=== PATIENT | male | born 1955 | race Caucasian/White ===

== ENCOUNTER 2018-07-12 20:55 | Observation (INO) | payer BC ==
[2018-07-12] MEDS ORDERED: MAGNE/ALUM HYDROXD 30 ML UCUP ONE (21:49)
[2018-07-12] MEDS ORDERED: LIDOCAINE VISCOUS 2% SOLN 15 ML UDC ONE (21:49)
[2018-07-12 21:56] LABS: Absolute Lymphocytes (CBC) 3.6 K/uL (0.7-4.9); Absolute Monocytes 0.5 K/uL (0.1-1.3); Absolute Neutrophil 3.5 K/uL (1.8-8.0); Eosinophils % 3.7 % (0-4.4); Hematocrit 45.1 % (39.6-49.0); MPV 8.7 fL (7.6-11.3); Monocytes % 6.3 % (3.3-12.3); RBC Red Blood Cell Count 5.12 M/uL (4.33-5.43)
[2018-07-12 21:57] LABS: Protime INR 1.01
[2018-07-12 22:16] LABS: ALT/SGPT 34 U/L (12-78); AST/SGOT 21 U/L (15-37); Albumin 3.8 g/dL (3.4-5.0); Alkaline Phosphatase 69 U/L (45-117); BUN Blood Urea Nitrogen 10 mg/dL (7-18); Bicarbonate 30 mmol/L (21-32); Bilirubin Direct < 0.1 mg/dL (0-0.2); Bilirubin Total 0.3 mg/dL (0.2-1.0); Glucose Level 180 mg/dL (74-106); Magnesium 1.9 mg/dL (1.8-2.4); NT PRO-BNP 16 pg/mL (<125); Potassium 3.8 mmol/L (3.5-5.1); Protein, Total 7.2 g/dL (6.4-8.2); Sodium Level 139 mmol/L (136-145); Troponin (Emerg Dept Use Only) < 0.02 ng/mL (0.0-0.045)
--- NOTE | 2018-07-13 01:10 | EDPHYS ---
Physician Documentation [facility] Name: Melvin Zabala Age: 63 yrs Sex: Male : 1955 Arrival Date: 07/12/2018 Time: 20:57 Bed 8 Private MD: Bob Deng H ED Physician Ceferino Jacob HPI: 07/13 01:25 This 63 yrs old Male presents to ER via Ambulatory with complaints of Chest tw4 Tightness, High Blood Pressure. 01:25 The patient or guardian reports chest pain that is located primarily in the anterior tw4 chest wall. Onset: today. The pain does not radiate. Associated signs and symptoms: The patient has no apparent associated signs or symptoms. The chest pain is described as aching. Duration: The patient or guardian reports a single episode. Modifying factors: The symptoms are alleviated by nothing. the symptoms are aggravated by nothing. Severity of pain: At its worst the pain was moderate in the emergency department the pain is unchanged. The patient has not experienced similar symptoms in the past. Historical: - Allergies: 07/12 21:16 No Known Allergies; aa1 - Home Meds: 21:16 None [Active]; aa1 - PMHx: 21:16 Back pain; aa1 - PSHx: 21:16 Carpal Tunnel Repair; ACL repair; foot sx; aa1 - Immunization history:: Flu vaccine is up to date. - Social history:: Smoking status: Patient/guardian denies using tobacco. - Ebola Screening: : No symptoms or risks identified at this time. ROS: 07/13 01:25 Constitutional: Negative for fever, chills, and weight loss, Eyes: Negative for injury, tw4 pain, redness, and discharge, Respiratory: Negative for shortness of breath, cough, wheezing, and pleuritic chest pain, Abdomen/GI: Negative for abdominal pain, nausea, vomiting, diarrhea, and constipation, Back: Negative for injury and pain. MS/Extremity: Negative for injury and deformity, Skin: Negative for injury, rash, and discoloration, Neuro: Negative for headache, weakness, numbness, tingling, and seizure. Cardiovascular: Positive for chest pain, Negative for edema, orthopnea, palpitations, paroxysmal nocturnal dyspnea. Exam: 01:25 Constitutional: This is a well developed, well nourished patient who is awake, alert, tw4 and in no acute distress. Head/Face: Normocephalic, atraumatic. Eyes: Pupils equal round and reactive to light, extra-ocular motions intact. Lids and lashes normal. Conjunctiva and sclera are non-icteric and not injected. Cornea within normal limits. Periorbital areas with no swelling, redness, or edema. Chest/axilla: Normal chest wall appearance and motion. Nontender with no deformity. No lesions are appreciated. Cardiovascular: Regular rate and rhythm with a normal S1 and S2. No gallops, murmurs, or rubs. Normal PMI, no JVD. No pulse deficits. Respiratory: Lungs have equal breath sounds bilaterally, clear to auscultation and percussion. No rales, rhonchi or wheezes noted. No increased work of breathing, no retractions or nasal flaring. Abdomen/GI: Soft, non-tender, with normal bowel sounds. No distension or tympany. No guarding or rebound. No evidence of tenderness throughout. Back: No spinal tenderness. No costovertebral tenderness. Full range of motion. MS/ Extremity: Pulses equal, no cyanosis. Neurovascular intact. Full, normal range of motion. Neuro: Awake and alert, GCS 15, oriented to person, place, time, and situation. Cranial nerves II-XII grossly intact. Motor strength 5/5 in all extremities. Sensory grossly intact. Cerebellar exam normal. Normal gait. Vital Signs: 07/12 21:16 BP 151 / 89; Pulse 56; Resp 18; Temp 98.1; Pulse Ox 100% on R/A; Weight 93.44 kg; aa1 Height 6 ft. 1 in. (185.42 cm); Pain 4/10; 22:21 BP 155 / 83; Pulse 55; Resp 16; Pulse Ox 98% on R/A; aa1 23:39 BP 139 / 90; Pulse 52; Resp 16; Pulse Ox 97% on R/A; aa1 07/13 00:30 BP 114 / 60; Pulse 47; Resp 16; Pulse Ox 100% on R/A; Pain 3/10; aa1 01:30 BP 144 / 85; Pulse 50; Resp 16; Pulse Ox 97% on R/A; Pain 10; aa1 02:46 BP 135 / 86; Pulse 49; Resp 14; Pulse Ox 97% on R/A; Pain 3/10; aa1 03:06 BP 128 / 65; Pulse 43; Resp 14 S; Pulse Ox 97% on R/A; jd3 07/12 21:16 Body Mass Index 27.18 (93.44 kg, 185.42 cm) aa1 MDM: 07/12 21:08 Patient medically screened. [facility] 07/13 01:28 Differential diagnosis: abnormal EKG, acute myocardial infarction, gastroesophageal tw4 reflux disease (GERD), herpes zoster, pulmonary embolus, stable angina. The patient was given aspirin in the Emergency Department. Data reviewed: vital signs, nurses notes. Data interpreted: Pulse oximetry: Interpretation: normal. Physician consultation: Dillan Gunter MD. 07/12 21:29 Order name: Basic Metabolic Panel; Complete Time: 22:41 [facility] 07/12 22:41 Interpretation: Normal except: GLUC 180; GFR 86. [facility] 07/12 21:29 Order name: CBC with Diff; Complete Time: 22:41 [facility] 07/12 22:41 Interpretation: Normal except: LYM% 45.0. [facility] 07/12 21:29 Order name: LFT's; Complete Time: 22:41 [facility] 07/12 22:42 Interpretation: Within normal limits. [facility] 07/12 21:29 Order name: Magnesium; Complete Time: 22:42 [facility] 07/12 22:42 Interpretation: Within normal limits: MG 1.9. [facility] 07/12 21:29 Order name: NT PRO-BNP [facility] 07/12 21:29 Order name: PT-INR [facility] 07/12 21:29 Order name: Troponin (emerg Dept Use Only) [facility] 07/13 00:25 Order name: Troponin (emerg Dept Use Only) [facility] 07/13 02:09 Order name: Basic Metabolic Panel [facility] 07/13 02:09 Order name: Basic Metabolic Panel [facility] 07/13 02:09 Order name: CBC with Automated Diff [facility] 07/13 02:09 Order name: CBC with Automated Diff [facility] 07/13 02:09 Order name: Lipid Profile [facility] 07/13 02:09 Order name: Lipid Profile [facility] 07/12 21:29 Order name: XRAY Chest (1 view) [facility] 07/12 21:29 Order name: EKG; Complete Time: 21:29 tw4 07/12 21:29 Order name: Cardiac monitoring; Complete Time: 21:35 tw4 07/12 21:29 Order name: EKG - Nurse/Tech; Complete Time: 21:35 tw4 07/12 21:29 Order name: IV Saline Lock; Complete Time: 21:47 tw4 07/12 21:29 Order name: Labs collected and sent; Complete Time: 21:47 tw4 07/12 21:29 Order name: O2 Per Protocol; Complete Time: 21:35 tw4 07/12 21:29 Order name: O2 Sat Monitoring; Complete Time: 21:35 tw4 07/13 02:09 Order name: CONS Physician Consult [facility] 07/13 02:09 Order name: Heart Healthy [facility] 07/13 02:09 Order name: Troponin I [facility] 07/13 02:09 Order name: Troponin I [facility] 07/13 02:09 Order name: Troponin I [facility] EC:25 Rate is 53 beats/min. Rhythm is regular, Sinus bradycardia. QRS [place] is Normal. [place] tw4 interval is normal. QRS interval is normal. QT interval is normal. No Q waves. T waves are Normal. No ST changes noted. Clinical impression: NSR w/ Non-specific ST/T Changes. Interpreted by me. Reviewed by me. Administered Medications: 07/12 21:47 Drug: GI Cocktail without - (Maalox Suspension 30 ml, Lidocaine Liquid 2 % 15 jd3 ml) Route: PO; 22:45 Follow up: Response: No adverse reaction [facility] 07/13 01:29 Not Given (Physician Discretion): Nitro-Bid Ointment 2 % 0.5 inches Transdermal once aa1 Disposition: 07/13/18 01:09 Hospitalization ordered by Dillan Gunter for Observation. Preliminary diagnosis are Chest pain, unspecified, Angina pectoris, unspecified. - Bed requested for Telemetry/MedSurg (observation). - Status is Observation. jd3 - Condition is Stable. - Problem is new. - Symptoms have improved. UTI on Admission? No Signatures: Dispatcher [employer] [facility] Raeann Wang RN RN Savana Sheppard RN RN aa1 Ronaldo Long RN RN jd3 Ceferino Jacob MD MD tw4 Corrections: (The following items were deleted from the chart) 01:34 01:09 Hospitalization Ordered by Dillan Gunter MD for Observation. Preliminary mw diagnosis is Chest pain, unspecified; Angina pectoris, unspecified. Bed requested for Telemetry/MedSurg (observation). Status is Observation. Condition is Stable. Problem is new. Symptoms have improved. UTI on Admission? No. tw4 03:18 01:34 07/13/2018 01:09 Hospitalization Ordered by Dillan Gunter MD for Observation. jd3 Preliminary diagnosis is Chest pain, unspecified; Angina pectoris, unspecified. Bed requested for Telemetry/MedSurg (observation). Status is Observation. Condition is Stable. Problem is new. Symptoms have improved. UTI on Admission? No. mw
--- NOTE | 2018-07-13 01:10 | ER ---
Nurse's Notes [facility] Name: Melvin Zabala Age: 63 yrs Sex: Male : 1955 Arrival Date: 07/12/2018 Time: 20:57 Bed 8 Private MD: Bob Deng H Diagnosis: Chest pain, unspecified;Angina pectoris, unspecified Presentation: 07/12 21:11 Presenting complaint: Patient states: he woke up this morning about 0730 with pain in aa1 his upper back and chest. Reports the pain was worse when he swallowed and felt as if he had something stuck in his esophagus. Denies N/V, SOB, or diaphoresis. Reports mild dizziness. States pain is mild. Transition of care: patient was not received from another setting of care. Onset of symptoms was July 12, 2018 at 07:30. Risk Assessment: Do you want to hurt yourself or someone else? Patient reports no desire to harm self or others. Initial Sepsis Screen: Does the patient meet any 2 criteria? No. Patient's initial sepsis screen is negative. Does the patient have a suspected source of infection? No. Patient's initial sepsis screen is negative. Care prior to arrival: None. 21:11 Method Of Arrival: Ambulatory aa1 21:11 Acuity: RUSTY 2 aa1 Historical: - Allergies: 21:16 No Known Allergies; aa1 - Home Meds: 21:16 None [Active]; aa1 - PMHx: 21:16 Back pain; aa1 - PSHx: 21:16 Carpal Tunnel Repair; ACL repair; foot sx; aa1 - Immunization history:: Flu vaccine is up to date. - Social history:: Smoking status: Patient/guardian denies using tobacco. - Ebola Screening: : No symptoms or risks identified at this time. Screenin:21 Abuse screen: Denies threats or abuse. Denies injuries from another. Nutritional aa1 screening: No deficits noted. Tuberculosis screening: No symptoms or risk factors identified. Fall Risk None identified. Assessment: 21:21 General: Appears in no apparent distress. comfortable, Behavior is calm, cooperative, aa1 appropriate for age. Pain: Complains of pain in thoracic area and mid-sternal area Pain does not radiate. Pain currently is 4 out of 10 on a pain scale. Quality of pain is described as dull, Pain began this morning upon waking Is continuous. Neuro: Level of Consciousness is awake, alert, obeys commands, Oriented to person, place, time, situation, Appropriate for age Moves all extremities. Full function Gait is steady, Speech is normal, Reports dizziness. Cardiovascular: Heart tones S1 S2 present Rhythm is regular. Respiratory: Airway is patent Respiratory effort is even, unlabored, Respiratory pattern is regular, symmetrical. GI: No signs and/or symptoms were reported involving the gastrointestinal system. : No signs and/or symptoms were reported regarding the genitourinary system. EENT: No signs and/or symptoms were reported regarding the EENT system. Derm: Skin is intact, is healthy with good turgor, Skin is pink, warm \T\ dry. Musculoskeletal: Circulation, motion, and sensation intact. Capillary refill < 3 seconds. 22:21 Reassessment: Patient appears in no apparent distress at this time. Patient and/or aa1 family updated on plan of care and expected duration. Pain level reassessed. Patient is alert, oriented x 3, equal unlabored respirations, skin warm/dry/pink. Awaiting provider reassessment. 23:35 Reassessment: Patient appears in no apparent distress at this time. Patient and/or aa1 family updated on plan of care and expected duration. Pain level reassessed. Patient is alert, oriented x 3, equal unlabored respirations, skin warm/dry/pink. Awaiting repeat cardiac enzymes to be drawn at 0045. 07/13 00:30 Reassessment: Patient appears in no apparent distress at this time. Patient and/or aa1 family updated on plan of care and expected duration. Pain level reassessed. Patient is alert, oriented x 3, equal unlabored respirations, skin warm/dry/pink. Pt to be admitted; awaiting bed assignment. 01:35 Reassessment: Patient appears in no apparent distress at this time. Patient and/or aa1 family updated on plan of care and expected duration. Pain level reassessed. Patient is alert, oriented x 3, equal unlabored respirations, skin warm/dry/pink. Pt to be admitted to room 229; awaiting admission orders from Dr. garcia. 02:46 Reassessment: Patient appears in no apparent distress at this time. Patient is alert, aa1 oriented x 3, equal unlabored respirations, skin warm/dry/pink. Attempted to call report, was told nurse will call back shortly. 03:05 Reassessment: Patient appears in no apparent distress at this time. Patient and/or jd3 family updated on plan of care and expected duration. Pain level reassessed. Patient is alert, oriented x 3, equal unlabored respirations, skin warm/dry/pink. report given to nurse Gagan for room 229. Vital Signs: 07/12 21:16 BP 151 / 89; Pulse 56; Resp 18; Temp 98.1; Pulse Ox 100% on R/A; Weight 93.44 kg; aa1 Height 6 ft. 1 in. (185.42 cm); Pain 4/10; 22:21 BP 155 / 83; Pulse 55; Resp 16; Pulse Ox 98% on R/A; aa1 23:39 BP 139 / 90; Pulse 52; Resp 16; Pulse Ox 97% on R/A; aa1 07/13 00:30 BP 114 / 60; Pulse 47; Resp 16; Pulse Ox 100% on R/A; Pain 3/10; aa1 01:30 BP 144 / 85; Pulse 50; Resp 16; Pulse Ox 97% on R/A; Pain 3/10; aa1 02:46 BP 135 / 86; Pulse 49; Resp 14; Pulse Ox 97% on R/A; Pain 3/10; aa1 03:06 BP 128 / 65; Pulse 43; Resp 14 S; Pulse Ox 97% on R/A; jd3 07/12 21:16 Body Mass Index 27.18 (93.44 kg, 185.42 cm) aa1 ED Course: 07/12 20:57 Patient arrived in ED. do 20:57 Bob Deng DO is Private Physician. do 21:08 Ceferino Jacob MD is Attending Physician. tw4 21:11 Savana Sheppard RN is Primary Nurse. aa1 21:13 Triage completed. aa1 21:16 Arm band placed on right wrist. aa1 21:21 Patient has correct armband on for positive identification. Placed in gown. Bed in low aa1 position. Call light in reach. surveillance system monitor on. Pulse ox on. NIBP on. 21:21 Patient maintains SpO2 saturation greater than 95% on room air. aa1 21:48 No provider procedures requiring assistance completed. Inserted saline lock: 20 gauge jd3 in right forearm, using aseptic technique. Blood collected. 21:59 XRAY Chest (1 view) In Process Unspecified. EDRI 07/13 01:09 Dillan Garcia MD is Hospitalizing Provider. tw4 02:53 Patient admitted, IV remains in place. aa1 Administered Medications: 07/12 21:47 Drug: GI Cocktail without - (Maalox Suspension 30 ml, Lidocaine Liquid 2 % 15 jd3 ml) Route: PO; 22:45 Follow up: Response: No adverse reaction jd3 07/13 01:29 Not Given (Physician Discretion): Nitro-Bid Ointment 2 % 0.5 inches Transdermal once aa1 Outcome: 01:09 Decision to Hospitalize by Provider. tw4 03:04 Admitted to Tele accompanied by tech, via wheelchair, room 229, with chart, Report jd3 called to Gagan FLORES 03:04 Condition: stable 03:04 Instructed on the need for admit, Demonstrated understanding of instructions. 03:18 Patient left the ED. jd3 Signatures: Dispatcher [employer] [facility]RI Savana Sheppard, RN RN aa1 Carine Hatfield Jonathon, RN RN jd3 Ceferino Jacob MD MD tw4
[2018-07-13] MEDS ORDERED: MORPHINE 4 MG/ML SYR IV PRN (02:06)
[2018-07-13] MEDS ORDERED: ACETAMINOPHEN 500 MG TAB PO PRN (02:06)
[2018-07-13] MEDS ORDERED: ALPRAZOLAM 0.25 MG TABLET PO PRN (02:06)
--- NOTE | 2018-07-13 04:22 | P.HP ---
Certification for Inpatient Patient admitted to: Observation With expected LOS: <2 Midnights Patient will require the following post-hospital care: None Practitioner: I am a practitioner with admitting privileges, knowledge of patient current condition, hospital course, and medical plan of care. Services: Services provided to patient in accordance with Admission requirements found in Title 42 Section 412.3 of the Code of Federal Regulations Patient History Date of Service: 07/13/18 Reason for admission: CP r/o ACS History of Present Illness: Patient is a 63-year-old gentleman who came to the hospital with chest pain. Pain was mainly in the sternal region. It started after he had something to eat yesterday. In the morning when he went to drink some water he has some discomfort. He said it was mainly related to swallowing liquids. The pain radiated to his back. The pain continued throughout the day and then he noted that his blood pressure was elevated. He went and bought a blood pressure cuff from his pharmacy. His blood pressure remained elevated any was having the chest discomfort so he came into the emergency room. In the ER, he was given a GI cocktail and Protonix with no relief of his abdominal pain. He will be admitted to the hospital for further evaluation. There is indication from the medical records that he was scheduled to get a treadmill stress test in May. Will see if there is any records. Allergies No Known Allergies Allergy (Verified 07/13/18 02:09) Home Medications: NK [No Home Meds] 07/13/18 - Past Medical/Surgical History Has patient received pneumonia vaccine in the past: No Diabetic: No -: accelerated heart rate -: Chronic Back Pain -: Carpal tunnel repair -: ACL repair left knee -: foot surgery both - Family History Father Medical History: Other (see notes) Notes: hardened arteries; heart dse Mother Medical History: Diabetes - Social History Smoking Status: Never smoker Alcohol use: Yes CD- Drugs: No Caffeine use: Yes Place of Residence: Home Review of Systems 10-point ROS is otherwise unremarkable Physical Examination - Vital Signs Temperature: 98.1 F Blood Pressure: 151/89 Pulse: 56 Respirations: 18 Pulse Ox (%): 98 - Physical Exam General: Alert, In no apparent distress, Oriented x3 HEENT: Atraumatic, PERRLA, Mucous membr. moist/pink, EOMI, Sclerae nonicteric Neck: Supple, 2+ carotid pulse no bruit, No LAD, Without JVD or thyroid abnormality Respiratory: Clear to auscultation bilaterally, Normal air movement Cardiovascular: Regular rate/rhythm, Normal S1 S2, No murmurs Gastrointestinal: Normal bowel sounds, Soft and benign, Non-distended, No tenderness Musculoskeletal: No clubbing, No swelling, No tenderness Integumentary: No rashes Neurological: Normal gait, Normal speech, Normal strength at 5/5 x4 extr, Normal tone, Sensation intact, Cranial nerves 3-12 intact, Normal affect Lymphatics: No axilla or inguinal lymphadenopathy - Studies Laboratory Data (last 24 hrs) 07/12/18 21:45: PT 11.9, INR 1.01 07/12/18 21:45: WBC 7.9, Hgb 15.8, Hct 45.1, Plt Count 176 07/12/18 21:45: Sodium 139, Potassium 3.8, BUN 10, Creatinine 0.89, Glucose 180 H, Magnesium 1.9, Total Bilirubin 0.3, AST 21, ALT 34, Alkaline Phosphatase 69 Assessment & Plan - Problems (Diagnosis) (1) Chest pain, rule out acute myocardial infarction Current Visit: Yes Status: Acute (2) HTN (hypertension) Current Visit: Yes Status: Acute Qualifiers: Hypertension type: essential hypertension Qualified Code(s): I10 - Essential (primary) hypertension (3) Dysphagia Current Visit: Yes Status: Acute - Plan 1. Serial troponins and EKG 2. Cardiology consultation 3. Echocardiogram and stress test if cardiology is agreeable 4. Anti-platelet therapy, anti coagulation, beta-john, statin, and O2 as needed 5. IV morphine for pain 6. Nitro p.r.n. 7. GI/DVT prophylaxis Discharge Plan: Home Plan to discharge in: 48 Hours - Advance Directives Does patient have a Living Will: Yes Does patient have a Durable POA for Healthcare: Yes - Code Status/Comfort Care Code Status Assessed: Yes Code Status: Full Code Critical Care: No Time Spent Managing PTS Care (In Minutes): 45
[2018-07-13 04:26] VITALS: O2SAT 97
[2018-07-13 04:42] VITALS: BMI 27.1
[2018-07-13] MEDS ORDERED: PANTOPRAZOLE 40MG TABLET PO SCH (06:30)
[2018-07-13 06:32] LABS: HDL Cholesterol 35 mg/dL (40-60); LDL Cholesterol, Calculated 107 (<130); Lipase 90 U/L (73-393); Troponin I < 0.02 ng/mL (0.0-0.045)
--- NOTE | 2018-07-13 07:36 | RAD REPORT ---
EXAM DESCRIPTION: Talia Single View07/12/2018 9:59 pm CLINICAL HISTORY: Chest pain COMPARISON: 2013 FINDINGS: The lungs appear clear of acute infiltrate. The heart is normal size IMPRESSION: No acute abnormalities displayed
[2018-07-13] MEDS ORDERED: METOPROLOL TAR 50 MG TAB PO SCH (09:00)
[2018-07-13] MEDS ORDERED: ASPIRIN 325 MG TAB PO SCH (09:00)
[2018-07-13] MEDS ORDERED: LOSARTAN POTASSIUM 50 MG TABLET PO SCH (09:00)
[2018-07-13] MEDS ORDERED: ENOXAPARIN 40 MG/0.4 ML SQ SCH (09:00)
--- NOTE | 2018-07-13 09:19 | EKG ---
Test Date: 2018-07-12 Test Time: 21:15:24 Fundraising Officer: [place]UMBA MEASUREMENT RESULTS: Intervals: Rate: 53 AR: 200 QRSD: 90 QT: 440 QTc: 412 [place]: P: 96 AR: 200 QRS: 123 T: 122 INTERPRETIVE STATEMENTS: Suspect arm lead reversal, interpretation assumes no reversal Sinus bradycardia Lateral infarct, age undetermined Abnormal ECG Compared to ECG 07/01/2010 06:33:23 Myocardial infarct finding now present finding is most likely due to arm lead reversal Electronically Signed On 07-13-18 09:18:26 CDT by Aaron Messer
[2018-07-13] MEDS ORDERED: REGADENOSON 0.4 MG/5 ML SYR IV ONE (09:37)
--- NOTE | 2018-07-13 12:26 | RAD REPORT ---
EXAM DESCRIPTION: NM - Rest Stress Cardiac Imaging - 07/13/2018 11:58 am CLINICAL HISTORY: Chest pain. COMPARISON: None. TECHNIQUE: The patient was administered approximately 10mCi of Tc 99m Sestamibi prior to resting SPE CT imaging of the heart. The patient was then administered approximately 30 mCi of Tc 99m Sestamibi f ollowing exercise or pharmacologic stress. Multiplanar SPECT images were reviewed. FINDINGS: Small area of diminished radiotracer uptake involves the inferior left ventricular myocard ium on rest and stress images. Otherwise there is uniformity of radiotracer uptake involving the enti re left ventricular myocardium The left ventricular ejection fraction equals 60% IMPRESSION: Small area of diminished radiotracer uptake involving the inferior left ventricular nolberto cardium probably secondary to attenuation from the diaphragm. An infarct is considered less likely No evidence of stress-induced ischemia
[2018-07-13 12:33] VITALS: BP 127/60; TEMP 98.3
--- NOTE | 2018-07-13 12:51 | CON ---
Chief Complaint: Chest pain between his shoulder blades associated with elevated blood pressure. History Of Present Illness: Mr. Garcia has no previous history of coronary heart disease. He has had normal stress test in the past. He was not having classical angina but pain between the shoulder blades. It made him think it could be his heart. It lasted some 8-10 hours before he actually came to the emergency room and now it has been another 24 since he has been in and all of his cardiac enz ymes look normal. The patient has never had myocardial infarction or stroke. He thinks he may have had atrial fib in the past, but we do not have any records of it here. He says all of his records we re here, but I think it must have been somewhere else. He does not take any medications. No anticoa gulants. No antiarrhythmics. No hypertension agents. He uses no tobacco. Physical Examination: General: 6 feet 1 inch, 206 pounds. HEENT: Normal. Lungs: Clear. Neck: Carotids, no bruit. Heart: Normal. Abdomen: Soft. Extremities: Normal. No cyanosis, clubbing, or edema. Distal pulses normal. EKG is not in the chart. All of his troponins are less than 0.02. I would recommend the patient hav e a stress test and echo and we will see if there is anything that needs to be worried about regardin g his atypical chest pain. He probably needs to be on antihypertensive medication. GENEVA/HILL Voice ID: [id number] Report ID: [id number]
--- NOTE | 2018-07-13 13:13 | P.DS ---
Admission Date: 07/13/18 Discharge Date: 07/13/18 Primary Care Provider: Dr. Deng Disposition: ROUTINE DISCHARGE Discharge Condition: GOOD Reason for Admission: CP r/o ACS Consultations: Cardiology-Dr. Messer Procedures: ECHO: Results pending at discharge. Cardiac stress test: COMPARISON: None. TECHNIQUE: The patient was administered approximately 10mCi of Tc 99m Sestamibi prior to resting SPECT imaging of the heart. The patient was then administered approximately 30 mCi of Tc 99m Sestamibi following exercise or pharmacologic stress. Multiplanar SPECT images were reviewed. FINDINGS: Small area of diminished radiotracer uptake involves the inferior left ventricular myocardium on rest and stress images. Otherwise there is uniformity of radiotracer uptake involving the entire left ventricular myocardium The left ventricular ejection fraction equals 60% IMPRESSION: Small area of diminished radiotracer uptake involving the inferior left ventricular myocardium probably secondary to attenuation from the diaphragm. An infarct is considered less likely No evidence of stress-induced ischemia Medical Problem List: Chest pain, likely noncardiac, with new diagnosis of hypertension Possible GERD Brief History of Present Illness: 63-year-old male presented to the emergency room with chest pain. Patient found to have elevated blood pressure. Patient was admitted for further evaluation and treatment. Hospital Course: Patient presented with chest pain. Patient was admitted for further evaluation. Cardiology was consulted. Cardiology recommended echocardiogram and cardiac stress test. Cardiac stress test no stress-induced ischemia. Results of echo pending at discharge. This can be followed up by his PCP. Cardiac enzymes unremarkable. No further intervention required. Chest pain likely noncardiac. Suspect underlying GERD. Recommend to continue with Pepcid 20 mg 1 pill twice daily. Patient may benefit with GI evaluation as an outpatient to further address. Patient may continue with aspirin 81 mg daily. Patient with noted elevated blood pressure. Patient not taking any medication at this time. Patient was started on medication during his hospital stay. Blood pressure improved with medication. At discharge he will continue with losartan 50 mg 1 pill daily. Recommend to maintain blood pressures less 150/ 80. Further adjustment can be done by his PCP. Vital Signs/Physical Exam: Temp Pulse Resp BP Pulse Ox 98.3 F 53 20 127/60 98 07/13/18 12:00 07/13/18 12:00 07/13/18 12:00 07/13/18 12:00 07/13/18 12:00 General: Alert, In no apparent distress, Oriented x3, Cooperative HEENT: Atraumatic Neck: Supple Respiratory: Clear to auscultation bilaterally, Normal air movement Cardiovascular: Normal pulses, Regular rate/rhythm Gastrointestinal: Normal bowel sounds, Soft and benign, Non-distended, No tenderness, No masses, No rebound, No guarding Musculoskeletal: No erythema, No tenderness, No warmth Integumentary: No tenderness/swelling, No erythema, No warmth, No cyanosis Neurological: Normal speech, Normal strength at 5/5 x4 extr, Normal tone, Normal affect Laboratory Data at Discharge: WBC 7.9 K/uL (4.3-10.9) 07/12/18 21:45 Hgb 15.8 g/dL (13.6-17.9) 07/12/18 21:45 Hct 45.1 % (39.6-49.0) 07/12/18 21:45 Plt Count 176 K/uL (152-406) 07/12/18 21:45 PT 11.9 SECONDS (9.5-12.5) 07/12/18 21:45 INR 1.01 07/12/18 21:45 Sodium 139 mmol/L (136-145) 07/12/18 21:45 Potassium 3.8 mmol/L (3.5-5.1) 07/12/18 21:45 BUN 10 mg/dL (7-18) 07/12/18 21:45 Creatinine 0.89 mg/dL (0.55-1.3) 07/12/18 21:45 Glucose 180 mg/dL (74-106) H 07/12/18 21:45 Magnesium 1.9 mg/dL (1.8-2.4) 07/12/18 21:45 Total Bilirubin 0.3 mg/dL (0.2-1.0) 07/12/18 21:45 AST 21 U/L (15-37) 07/12/18 21:45 ALT 34 U/L (12-78) 07/12/18 21:45 Alkaline Phosphatase 69 U/L (45-117) 07/12/18 21:45 Troponin I < 0.02 ng/mL (0.0-0.045) 07/13/18 06:00 Triglycerides 155 mg/dL (<150) H 07/13/18 06:00 Cholesterol 173 mg/dL (<200) 07/13/18 06:00 HDL Cholesterol 35 mg/dL (40-60) L 07/13/18 06:00 Cholesterol/HDL Ratio 4.94 07/13/18 06:00 Lipase 90 U/L (73-393) 07/13/18 06:00 Home Medications: Aspirin [Aspirin EC 81 MG] 81 mg PO DAILY #90 tablet. 07/13/18 Famotidine [Pepcid] 20 mg PO BID #60 tab 07/13/18 Losartan Potassium [Cozaar*] 50 mg PO DAILY #30 tablet 07/13/18 New Medications: Aspirin [Aspirin EC 81 MG] 81 mg PO DAILY #90 tablet. Famotidine [Pepcid] 20 mg PO BID #60 tab Losartan Potassium [Cozaar*] 50 mg PO DAILY #30 tablet Patient Discharge Instructions: 1. Recommend to follow up with his PCP in 1 week to follow up this hospitalization. 2. Patient presented with chest pain. Patient was admitted for further evaluation. Cardiology was consulted. Cardiology recommended echocardiogram and cardiac stress test. Cardiac stress test no stress-induced ischemia. Results of echo can be followed up by his PCP. Cardiac enzymes unremarkable. No further intervention required. Chest pain likely noncardiac. Suspect underlying GERD. Recommend to continue with Pepcid 20 mg 1 pill twice daily. Patient may benefit with GI evaluation as an outpatient to further address if this persists. Patient may continue with aspirin 81 mg daily. 3. Patient with noted elevated blood pressure. Patient not taking any medication at this time. Patient was started on medication. Blood pressure improved. At discharge he will continue with losartan 50 mg 1 pill daily. Recommend to maintain blood pressures less 150/80. Further adjustment can be done by his PCP. Diet: AHA Activity: Ad ellen Time spent managing pt's care (in minutes): 55
--- NOTE | 2018-07-13 13:45 | ECHO ---
HEIGHT: 6 ft 1 in WEIGHT: 206 lb 0 oz DATE OF STUDY: 07/13/[address]: Dillan Gunter MD 2-DIMENSIONAL: YES M.MODE: YES DOPPLER: YES COLOR FLOW: YES TDS: YES PORTABLE: NO DEFINITY: NO BUBBLE STUDY: NO DIAGNOSIS: CHEST PAIN/ RULE OUT ACUTE CORONARY SYNDROME CARDIAC HISTORY: CATHERIZATION: NO SURGERY: NO PROSTHETIC VALVE: NO PACEMAKER: NO MEASUREMENTS (cm) DIASTOLIC (NORMALS) SYSTOLIC (NORMALS) IVSd 0.9 (0.6-1.2) LA Diam 3.5 (1.9-4.0) LVEF 79% LVIDd 4.6 (3.5-5.7) LVIDs 2.4 (2.0-3.5) %FS 48% LVPWd 1.0 (0.6-1.2) Ao Diam 3.1 (2.0-3.7) 2 DIMENSIONAL ASSESSMENT: RIGHT ATRIUM: NORMAL LEFT ATRIUM: NORMAL RIGHT VENTRICLE: NORMAL LEFT VENTRICLE: NORMAL TRICUSPID VALVE: NORMAL MITRAL VALVE: NORMAL PULMONIC VALVE: NORMAL AORTIC VALVE: NORMAL PERICARDIAL EFFUSION: NONE AORTIC ROOT: NORMAL LEFT VENTRICULAR WALL MOTION: NORMAL. DOPPLER/COLOR FLOW: NORMAL. COMMENTS: NORMAL 2D ECHO WITH DOPPLER. TECHNOLOGIST: MIRLANDE QUAN
--- NOTE | 2018-07-13 13:58 | TREADPHA ---
DX: CHEST PAIN Date of Study: 07/13/18 Ht: 6 1 Wt: 206 lb 0 oz Consulting Physician: DEBORAH MEDICATIONS: TYLENOL, XANAX, LOVENOX, COZAAR, ASPIRIN, PROTONIX HISTORY: 63 YEAR OLD MALE WITH COMPLAINTS OF CHEST PAIN. PHYSICIAL EXAMINATION: RESTING B.P.: 151/83 RESTING H.R.: 54 RESTING EKG: SINUS BRADYCARDIA WITH PREMATURE ATRIAL COMPLEXES PROTOCOL: LEXISCAN EXERCISE TIME: 3:30 B.P. AT PEAK STRESS: 159/85 IMPRESSION: LEXISCAN INJECTED, CARDIOLITE INJECTED PER PROTOCOL. SEE NUCLEAR MEDICINE REPORT. NO SUPRA VENTRICULAR TACHYCARDIA, NO VENTRICULAR TACHYCARDIA, NO PREMATURE VENTRICULAR COMPLEXES. DENIED CHEST PAIN. NON DIAGNOSTIC EKG WITH LEXISCAN STRESS.
== END 2018-07-13 14:20 | disposition home or self-care (01) ==
LOC: ER 20:55 → ERHOLD 07-13 02:06 → 2ND 07-13 03:09
PROVIDERS: ADMIT Hospitalist; ATTEND Family Medicine
DX: I49.1 Atrial premature depolarization (principal); I10 Essential (primary) hypertension; R07.89 Other chest pain; R13.10 Dysphagia, unspecified; Z79.82 Long term (current) use of aspirin
CPT/HCPCS: 36415; 71045; 78452; 80048; 80061; 80076; 83690; 83735; 83880; 84484; 85025; 85610; 93005; 93017; 93306; 99285; A9500; G0378; J1650; J2785

== ENCOUNTER 2021-09-04 12:20 | Emergency (ER) | payer OTHER, BC ==
[2021-09-04] MEDS ORDERED: NA CHLORIDE 0.9% 1,000 ML ONE (12:50)
[2021-09-04 13:07] LABS: Absolute Lymphocytes (CBC) 2.2 K/uL (0.7-4.9); Lymphocytes % 39.1 % (15.3-44.8); MCV 87.8 fL (80-100); MPV 9.1 fL (7.6-11.3); RBC Red Blood Cell Count 5.12 M/uL (4.33-5.43)
[2021-09-04 14:23] LABS: Albumin 4.1 g/dL (3.4-5.0); BUN Blood Urea Nitrogen 16 mg/dL (7-18); Bicarbonate 27 mmol/L (21-32); Potassium 4.2 mmol/L (3.5-5.1); Sodium Level 130 mmol/L (136-145)
[2021-09-04 14:28] LABS: ALT/SGPT 38 U/L (12-78); AST/SGOT 13 U/L (15-37); Alkaline Phosphatase 73 U/L (45-117); Bilirubin Total 0.6 mg/dL (0.2-1.0); Glomerular Filtration Rate 76 ml/min (=/>90); Protein, Total 7.4 g/dL (6.4-8.2)
[2021-09-04 14:30] LABS: Urine Blood Negative (Negative); Urine Glucose 3+ (Negative); Urine Protein Negative (Negative); Urine Specific Gravity 1.015 (1.005-1.030); Urine pH 5.5 (5.0-7.0)
[2021-09-04 14:31] LABS: Glucose Level 456 mg/dL (74-106)
[2021-09-04] MEDS ORDERED: INSULIN -REGULAR HUMAN 50 UNIT/0.5 ML ML ONE (15:36)
--- NOTE | 2021-09-04 16:14 | ER ---
Nurse's Notes [facility] Name: Melvin Zabala Age: 66 yrs Sex: Male : 1955 Arrival Date: 09/04/2021 Time: 12:22 Bed 5 Private MD: Diagnosis: Hyperglycemia, unspecified Presentation: 09/04 12:35 Chief complaint: Patient states: Fatigue, increased urination, increased thirst/hunger, ld1 difficulty urinating X 2 months - getting worse. BG 464. Coronavirus screen: At this time, the client does not indicate any symptoms associated with coronavirus-19. Ebola Screen: No symptoms or risks identified at this time. Initial Sepsis Screen: Does the patient meet any 2 criteria? No. Patient's initial sepsis screen is negative. Does the patient have a suspected source of infection? No. Patient's initial sepsis screen is negative. Risk Assessment: Do you want to hurt yourself or someone else? Patient reports no desire to harm self or others. Onset of symptoms was September 04, 2021. 12:35 Method Of Arrival: Ambulatory ld1 12:35 Acuity: RUSTY 3 ld1 Triage Assessment: 12:37 General: Appears in no apparent distress. comfortable, Behavior is calm, cooperative, ld1 appropriate for age. Pain: Denies pain. EENT: No signs and/or symptoms were reported regarding the EENT system. Neuro: Level of Consciousness is awake, alert, obeys commands, Oriented to person, place, time, situation. Cardiovascular: Capillary refill < 3 seconds Patient's skin is warm and dry. Respiratory: Airway is patent Respiratory effort is even, unlabored, Respiratory pattern is regular, symmetrical. GI: Abdomen is flat, non-distended. : No signs and/or symptoms were reported regarding the genitourinary system. Derm: No signs and/or symptoms reported regarding the dermatologic system. Musculoskeletal: No signs and/or symptoms reported regarding the musculoskeletal system. Historical: - Allergies: 12:37 No Known Allergies; ld1 - Home Meds: 12:37 None [Active]; ld1 - PMHx: 12:37 Back pain; ld1 - PSHx: 12:37 None; ld1 - Immunization history:: Adult Immunizations up to date, Client reports receiving the 2nd dose of the Covid vaccine. - Social history:: Smoking status: Patient denies any tobacco usage or history of. Patient/guardian denies using alcohol. Screenin:28 Abuse screen: Denies threats or abuse. Denies injuries from another. Nutritional jl7 screening: No deficits noted. Tuberculosis screening: No symptoms or risk factors identified. Fall Risk IV access (20 points). Total Salomon Fall Scale indicates No Risk (0-24 pts). Assessment: 12:30 General: Appears in no apparent distress. uncomfortable, Behavior is calm, cooperative, jl7 appropriate for age. Pain: Denies pain. Neuro: Level of Consciousness is awake, alert, obeys commands, Oriented to person, place, time, situation, Reports Fatigue. Cardiovascular: Patient's skin is warm and dry. Respiratory: Airway is patent Respiratory effort is even, unlabored, Respiratory pattern is regular, symmetrical. GI: No signs and/or symptoms were reported involving the gastrointestinal system. : Reports urinary frequency. Derm: Skin is pink, warm \T\ dry. 13:30 Reassessment: No changes from previously documented assessment. Patient and/or family bp updated on plan of care and expected duration. Pain level reassessed. 15:00 Reassessment: No changes from previously documented assessment. Patient is alert, bp oriented x 3, equal unlabored respirations, skin warm/dry/pink. Vital Signs: 12:35 BP 167 / 77; Pulse 49; Resp 18; Temp 98.1(TE); Pulse Ox 98% on R/A; Weight 89.36 kg; ld1 Height 6 ft. 2 in. (187.96 cm); Pain 0/10; 13:28 BP 140 / 70; Pulse 48; Resp 15; Pulse Ox 98% on R/A; jl7 15:00 BP 140 / 70; Pulse 49; Resp 16; Pulse Ox 100% ; bp 16:00 BP 126 / 63; Pulse 49; Resp 15; Pulse Ox 100% ; jl7 12:35 Body Mass Index 25.29 (89.36 kg, 187.96 cm) ld1 ED Course: 12:22 Patient arrived in ED. mr 12:23 Avelina Weber FNP-C is [facility]. kb 12:23 Vito Ordonez DO is Attending Physician. kb 12:25 Harish Jenkins RN is Primary Nurse. jl7 12:37 Triage completed. ld1 12:37 Arm band placed on right wrist. ld1 12:55 Missed attempt(s): 20 gauge in right forearm. Bleeding controlled, band aid applied, jl7 catheter tip intact. 13:00 Initial lab(s) drawn, by me, sent to lab. Inserted saline lock: 22 gauge in left jl7 antecubital area, using aseptic technique. Blood collected. 13:28 Patient has correct armband on for positive identification. Bed in low position. Call jl7 light in reach. Side rails up X 1. Pulse ox on. NIBP on. 16:33 No provider procedures requiring assistance completed. IV discontinued, intact, jl7 bleeding controlled, No redness/swelling at site. Pressure dressing applied. Administered Medications: 12:50 Drug: NS 0.9% 1000 ml Route: IV; Rate: 1000 ml; Site: left antecubital; jl7 16:16 Follow up: Response: No adverse reaction; IV Status: Completed infusion; IV Intake: jl7 1000ml 15:30 Drug: Insulin Regular Human 5 units {Co-Signature: [email or web address] (Maren Cordero RN).} Route: bp IVP; Site: right antecubital; 15:36 Follow up: Response: No adverse reaction bp Medication: 13:28 VIS not applicable for this client. jl7 Intake: 16:16 IV: 1000ml; Total: 1000ml. jl7 Outcome: 16:13 Discharge ordered by . kb 16:37 Discharged to home ambulatory, with family. jl7 16:37 Condition: stable 16:37 Discharge instructions given to patient, family, Instructed on discharge instructions, follow up and referral plans. medication usage, Demonstrated understanding of instructions, follow-up care, medications, Prescriptions given X 1. 16:37 Patient left the ED. jl7 Signatures: Avelina Weber, TAMMY MARKS-Fabiola Sapphire Escalante Harish Jenkins RN RN jl7 Fracisco Alvarez RN RN bp Dibbern, Lauren, RN RN ld1 Maren Cordero RN ld1
--- NOTE | 2021-09-04 16:14 | EDPHYS ---
Physician Documentation [facility] Name: Melvin Zabala Age: 66 yrs Sex: Male : 1955 Arrival Date: 09/04/2021 Time: 12:22 Bed 5 Private MD: ED Physician Vito Ordonez Historical: - Allergies: 09/04 12:37 No Known Allergies; ld1 - Home Meds: 12:37 None [Active]; ld1 - PMHx: 12:37 Back pain; ld1 - PSHx: 12:37 None; ld1 - Immunization history:: Adult Immunizations up to date, Client reports receiving the 2nd dose of the Covid vaccine. - Social history:: Smoking status: Patient denies any tobacco usage or history of. Patient/guardian denies using alcohol. Vital Signs: 12:35 BP 167 / 77; Pulse 49; Resp 18; Temp 98.1(TE); Pulse Ox 98% on R/A; Weight 89.36 kg; ld1 Height 6 ft. 2 in. (187.96 cm); Pain 0/10; 13:28 BP 140 / 70; Pulse 48; Resp 15; Pulse Ox 98% on R/A; jl7 15:00 BP 140 / 70; Pulse 49; Resp 16; Pulse Ox 100% ; bp 16:00 BP 126 / 63; Pulse 49; Resp 15; Pulse Ox 100% ; jl7 12:35 Body Mass Index 25.29 (89.36 kg, 187.96 cm) ld1 MDM: 12:23 Patient medically screened. kb 15:31 Data reviewed: vital signs, nurses notes. Data interpreted: Pulse oximetry: on room air kb is 100 %. Interpretation: normal. Counseling: I had a detailed discussion with the patient and/or guardian regarding: the historical points, exam findings, and any diagnostic results supporting the discharge/admit diagnosis, lab results, the need for outpatient follow up, a family practitioner, endocrinology, to return to the emergency department if symptoms worsen or persist or if there are any questions or concerns that arise at home. 09/04 12:35 Order name: CBC with Diff; Complete Time: 13:18 kb 09/04 12:35 Order name: CMP; Complete Time: 14:38 kb 09/04 12:35 Order name: TSH; Complete Time: 14:38 kb 09/04 12:35 Order name: Hemoglobin A1c kb 09/04 12:35 Order name: Acetone, Serum; Complete Time: 14:38 kb 09/04 12:43 Order name: Glucose, Ancillary Testing; Complete Time: 12:48 EDMS 09/04 12:35 Order name: IV Start; Complete Time: 13:26 kb 09/04 12:35 Order name: Urine Dipstick-Ancillary (obtain specimen); Complete Time: 15:10 kb 09/04 14:31 Order name: Urine Dipstick-Ancillary; Complete Time: 14:32 EDMS 09/04 15:34 Order name: Glucose, Ancillary Testing; Complete Time: 15:35 EDMS 09/04 15:44 Order name: Hemoglobin A1c EDMS 09/04 16:24 Order name: Glucose, Ancillary Testing; Complete Time: 16:29 EDMS 09/04 15:18 Order name: Blood Glucose Level; Complete Time: 15:35 kb 09/04 16:13 Order name: Blood Glucose Level; Complete Time: 16:16 kb Administered Medications: 12:50 Drug: NS 0.9% 1000 ml Route: IV; Rate: 1000 ml; Site: left antecubital; jl7 16:16 Follow up: Response: No adverse reaction; IV Status: Completed infusion; IV Intake: jl7 1000ml 15:30 Drug: Insulin Regular Human 5 units {Co-Signature: ld1 (Maren Cordero RN).} Route: bp IVP; Site: right antecubital; 15:36 Follow up: Response: No adverse reaction bp Disposition Summary: 09/04/21 16:13 Discharge Ordered Location: Home kb Condition: Stable kb Diagnosis - Hyperglycemia, unspecified kb Followup: kb - With: Emergency Department - When: As needed - Reason: Worsening of condition Followup: kb - With: Private Physician - When: 2 - 3 days - Reason: Recheck today's complaints, Continuance of care, Re-evaluation by your physician Discharge Instructions: - Discharge Summary Sheet kb - Hyperglycemia, Ugoa-[id number] kb - Type 2 Diabetes Mellitus, Diagnosis, Adult, [id number] kb Forms: - Medication Reconciliation Form kb - Thank You Letter kb - Antibiotic Education kb - Prescription Opioid Use kb Prescriptions: - Metformin 500 mg Oral Tablet - take 1 tablet by ORAL route 2 times per day for 30 days take 1 tablet with kb morning meals AND evening meals; 60 tablet; Refills: 0, Product Selection Permitted Signatures: Dispatcher [employer] Avelina Carter FNP-C FNP-Ckb Leal, Jahala, RN RN jl7 Fracisco Alvarez RN RN bp Maren Cordero RN RN ld1 Maren Cordero RN ld1
[2021-09-04 16:49] VITALS: TEMP 98.1
[2021-09-04 16:54] VITALS: O2SAT 100
[2021-09-04 16:56] VITALS: BP 126/63
== END 2021-09-04 16:37 | disposition home or self-care (01) ==
LOC: ER 12:20
DX: R73.9 Hyperglycemia, unspecified (principal)
CPT/HCPCS: 85025; 36415; 82010; 82947 ×3; 84443; 81003; 83036; 80053; J1815; J7030